=== PATIENT | male | born 1955 | race Caucasian/White ===

== ENCOUNTER 2021-08-14 10:11 | Emergency (ER) | payer OTHER ==
[~2021-08-14] VITALS: Ht 167.6 cm; Wt 81.6 kg
[2021-08-14] MEDS ORDERED: ZESTRIL20 MG PO (10:25)
[2021-08-14] MEDS ORDERED: CRESTOR10 MG PO (10:26)
[2021-08-14] MEDS ORDERED: PROTONIX40 M1 PO (10:27)
== END 2021-08-14 15:15 | disposition home or self-care (01) ==
LOC: ER 10:11
DX: U07.1 COVID-19 (principal); B34.9 Viral infection, unspecified

== ENCOUNTER → 2021-08-16 | Outpatient (CLI) | payer OTHER ==
[~2021-08-16] MED LIST: CRESTOR10 MG PO; PROTONIX40 M1 PO; ZESTRIL20 MG PO
== END | disposition home or self-care (01) ==
LOC: ASH CLINIC 13:30
PROVIDERS: ATTEND General Practice
DX: Z23 Encounter for immunization (principal); U07.1 COVID-19